=== PATIENT | female | born 1990 | race Two or more races ===

== ENCOUNTER 2022-07-15 07:47 | Emergency (ER) | payer OTHER ==
[2022-07-15] MEDS ORDERED: KETOROLAC 30 MG/ML VIAL IVP STA (08:24)
[2022-07-15] MEDS ORDERED: SODIUM CHLORIDE 0.9% 1,000 ML IV STA (08:24)
[2022-07-15 08:45] LABS: BASOPHILS % (AUTO) 0.2 %; EOSINOPHILS # (AUTO) 0.2 10^3/uL (0.0-0.7); EOSINOPHILS % (AUTO) 1.2 %; HCT - HEMATOCRIT 39.7 % (37.0-47.0); HGB - HEMOGLOBIN 12.7 g/dL (12.0-16.0); LYMPHOCYTES # (AUTO) 2.3 10^3/uL (1.5-3.5); LYMPHOCYTES % (AUTO) 15.9 %; MEAN CORPUSCULAR HEMOGLOBIN 30.5 pg (27.0-31.0); MEAN CORPUSCULAR VOLUME 95.4 fL (81.0-99.0); MEAN PLATELET VOLUME 9.7 fL (7.9-10.8); MONOCYTES # (AUTO) 0.7 10^3/uL (0.0-1.0); MONOCYTES % (AUTO) 4.9 %; NEUTROPHILS # (AUTO) 11.2 10^3/uL (1.5-6.6); NEUTROPHILS % (AUTO) 77.5 %; PLT - PLATELET COUNT 229 10^3/uL (130-450); RED BLOOD COUNT 4.16 10^6/uL (4.20-5.40); RED CELL DISTRIBUTION WIDTH 12.9 % (12.0-15.0); WHITE BLOOD COUNT 14.4 x10^3/uL (4.8-10.8)
[2022-07-15 09:07] LABS: ALBUMIN 4.2 g/dL (3.2-5.5); ALBUMIN/GLOBULIN RATIO 1.1 (1.0-2.2); BILIRUBIN,TOTAL 1.4 mg/dL (0.2-1.0); CALCIUM 8.6 mg/dL (8.5-10.3); CREATININE 0.6 mg/dL (0.4-1.0); POTASSIUM 3.4 mmol/L (3.5-5.0)
[2022-07-15 09:17] LABS: BILIRUBIN,URINE NEGATIVE (NEGATIVE); GLUCOSE, URINE (UA) NEGATIVE (NEGATIVE); KETONES,URINE (UA) NEGATIVE (NEGATIVE); LEUKOCYTE ESTERASE, URINE NEGATIVE (NEGATIVE); NITRITE,URINE NEGATIVE (NEGATIVE); OCCULT BLOOD,URINE TRACE-INTA (NEGATIVE); PROTEIN,URINE TRACE mg/dL (NEGATIVE); UROBILINOGEN,URINE 0.2 (NORMAL) E.U./dL (NORMAL)
[2022-07-15 09:19] LABS: CLARITY,URINE CLEAR (CLEAR); HCG UR QUAL NEGATIVE
--- NOTE | 2022-07-15 11:21 | CT Report ---
PROCEDURE: ABDOMEN/PELVIS W INDICATIONS: mid abdominal pain CONTRAST: 100ml Omnipaque 300 TECHNIQUE: After the administration of IV contrast, 5 mm thick sections acquired from the diaphragms to the symp hysis. 5 mm thick coronal and sagittal reformats were acquired. For radiation dose reduction, the f ollowing was used: automated exposure control, adjustment of mA and/or kV according to patient size. COMPARISON: None. FINDINGS: Image quality: Excellent. ABDOMEN: Lung bases: Lung bases are clear. Heart size is normal. Small hiatal hernia. Solid organs: Liver is normal in size. Mild hepatic steatosis. Spleen is mildly enlarged measuring 1 4.1 cm in length. Gallbladder contains gallstones. Biliary system is non dilated. Pancreas enhanc es normally. No adrenal nodules. Kidneys demonstrate normal size and enhancement, without hydroneph rosis. Peritoneum and bowel: Bowel loops demonstrate normal wall thickness and caliber. Appendix is normal . No free fluid or air. Nodes and vessels: No retroperitoneal or mesenteric adenopathy by size criteria. Aorta and inferior vena cava are normal in size. Miscellaneous: No ventral hernias. PELVIS: Genitourinary: Bladder wall thickness is normal. There is an IUD in uterus. Uterus is otherwise nor mal. Ovaries are unremarkable. No free fluid in pelvis. Miscellaneous: No inguinal hernias or adenopathy. Bones: No suspicious bony lesions. No vertebral body compression fractures. 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 IMPRESSION: 1. Cholelithiasis. No CT findings to suggest acute cholecystitis. If clinically indicated, ultrasound may be helpful. 2. Mild hepatic steatosis. 3. Mild splenomegaly. Reviewed by: Damien Godinez MD on 07/15/2022 10:19 AM [facility] [place] Approved by: Damien Godinez MD on 07/15/2022 10:19 AM [facility] [place] Station ID: [id number]
[2022-07-15] MEDS ORDERED: iohexoL-300 100 ML VIAL ONE (13:06)
--- NOTE | 2022-07-15 13:17 | Ultrasound Report ---
PROCEDURE: Abdomen Limited INDICATIONS: RUQ pain TECHNIQUE: Real-time scanning was performed of the abdominal and retroperitoneal organs, with image documentatio n. COMPARISON: None. FINDINGS: Liver: Liver is normal in size and homogeneous in echotexture. Gallbladder: Gallstone is present. Wall thickness is normal measuring 2 mm. Biliary ducts: Intrahepatic bile ducts are non-dilated. Extrahepatic bile duct caliber measures 3.5 mm. Normal is 6-7 mm or less in diameter, or 10 mm or less post-cholecystectomy. Pancreas: Visualized portions of the pancreas are sonographically normal. Kidneys: Right kidney measures 13.1 cm long. No hydronephrosis or nephrolithiasis. No solid masses . Miscellaneous: No free abdominal fluid. IMPRESSION: Cholelithiasis without wall thickening. . Reviewed by: Jess Connelly MD on 07/15/2022 1:16 PM [facility] Approved by: Jess Connelly MD on 07/15/2022 1:16 PM [facility] Station ID: [id number]
[2022-07-15 13:20] VITALS: BP 113/63
--- NOTE | 2022-07-15 13:23 | ED Physician Documentation ---
PD HPI ABD PAIN - Stated complaint Stated Complaint: ABD PX - Chief complaint Chief Complaint: Abd Pain - History obtained from History obtained from: Patient - Additional information Additional information: Pt is a 32 yo F presenting for evaluation of epigastric abdominal pain x 1 day with nausea. She describes it as sharp, non radiating. Nothing makes it better or worse. Denies CP. Pt is 8 months and is . No prior abdominal surgeries. Review of Systems Constitutional: denies: Fever Cardiac: denies: Chest pain / pressure Respiratory: denies: Dyspnea GI: reports: Abdominal Pain : denies: Dysuria Musculoskeletal: denies: Back pain Neurologic: denies: Headache PD PAST MEDICAL HISTORY - Past Medical History Past Medical History: Yes Cardiovascular: None Respiratory: Asthma Neuro: None Endocrine/Autoimmune: None GI: None [employer]: None : None HEENT: None Psych: None Musculoskeletal: None Derm: None - Past Surgical History Past Surgical History: No - Present Medications Home Medications: Ambulatory Orders Medication Instructions Recorded Confirmed Albuterol Sulf [Ventolin Hfa 1 - 2 puffs INH Q4HR PRN 07/15/22 07/15/22 Inhaler] - Allergies Allergies/Adverse Reactions: Allergies Allergy/AdvReac Type Severity Reaction Status Date / Time No Known Drug Allergies Allergy Verified 07/15/22 08:06 - Social History Does the pt smoke?: No Smoking Status: Never smoker Does the pt drink ETOH?: No Does the pt have substance abuse?: No - Immunizations Immunizations are current?: Yes PD ED PE NORMAL - General General: Alert and oriented X 3, No acute distress, Well developed/nourished - HEENT HEENT: Atraumatic - Neck Neck: Supple, no meningeal sign - Cardiac Cardiac: RRR - Respiratory Respiratory: No respiratory distress, Clear bilaterally - Abdomen Abdomen: Normal bowel sounds, Soft, Non distended, Other (epigastric and RUQ/LUQ ttp) - Derm Derm: Warm and dry - Neuro Neuro: Normal speech Results - Vitals Vitals: Vital Signs - 24 hr 07/15/22 07/15/22 07/15/22 07:57 09:06 11:00 Temperature 36.8 C Heart Rate 70 64 69 Respiratory 18 16 17 Rate Blood Pressure 121/76 106/65 110/62 O2 Saturation 99 100 100 07/15/22 13:00 Temperature Heart Rate 58 L Respiratory 16 Rate Blood Pressure 113/63 O2 Saturation 100 Oxygen O2 Source Room air - Labs Labs: Laboratory Tests 07/15/22 07/15/22 07/15/22 08:41 08:41 09:00 WBC 14.4 H RBC 4.16 L Hgb 12.7 Hct 39.7 MCV 95.4 MCH 30.5 MCHC 32.0 RDW 12.9 Plt Count 229 MPV 9.7 Neut # (Auto) 11.2 H Lymph # (Auto) 2.3 Terrell # (Auto) 0.7 Eos # (Auto) 0.2 Baso # (Auto) 0.0 Absolute Nucleated RBC 0.00 Nucleated RBC % 0.0 Sodium 135 Potassium 3.4 L Chloride 100 L Carbon Dioxide 26 Anion Gap 9.0 BUN 13 Creatinine 0.6 Estimated GFR (MDRD) 117 Glucose 99 Calcium 8.6 Total Bilirubin 1.4 H AST 17 ALT 22 Alkaline Phosphatase 66 Total Protein 8.0 Albumin 4.2 Globulin 3.8 Albumin/Globulin Ratio 1.1 Lipase 28 Urine Color DARK YELLOW Urine Clarity CLEAR Urine pH 6.0 Ur Specific [place] >=1.030 H Urine Protein TRACE Urine Glucose (UA) NEGATIVE Urine Ketones NEGATIVE Urine Occult Blood TRACE-INTA Urine Nitrite NEGATIVE Urine Bilirubin NEGATIVE Urine Urobilinogen 0.2 (NORMAL) Ur Leukocyte Esterase NEGATIVE Ur Microscopic Review NOT INDICATED Urine Culture Comments NOT INDICATED Urine HCG, Qual NEGATIVE PD Medical Decision Making - ED course Complexity details: reviewed results, re-evaluated patient ED course: Pt evaluated for upper abdominal pain. Stable vitals. Mild leukocytosis and total bili of 1.[address] with signs of cholelithiasis. US with same. No signs of cholecystitis on imaging and overall abdominal exam remains benign. Pt declined need for pain meds. Discussed need for close follow up with general surgery as well as low fat diet. Pt counseled on strict return precautions. 1320 - Discussed with surgery Dr. Pickard regarding elevated bilirubin, reviewed other labs and imaging with her. Pt okay for outpatient follow up as no duct dilatation seen on CT or US and LFTs normal. Departure - Departure Disposition: 01 Home, Self Care Clinical Impression: Cholelithiasis Condition: Stable Instructions: ED Diet Low Fat, ED Gallstone W Biliary Colic Follow-Up: Eloisa Chun MD [Provider Admit Priv/Credential] - Comments: You have gallstones which is likely causing your symptoms. You may need to have your gallbladder out in the future. I would stick with a low-fat diet to try and prevent your symptoms from reoccurring. Please follow-up with your primary care doctor as you may need a referral to the general surgery clinic depending on your insurance. I have also included the name of a surgeon you can follow-up with. If it anytime you have any worsening symptoms such as increased pain, appear yellow or have any concerns please return to the emergency department. Forms: Activity restrictions Discharge Date/Time: 07/15/22 14:08
[2022-07-15] MEDS ORDERED: iohexoL-300 100 ML VIAL IVP ONE (15:31)
== END 2022-07-15 14:08 | disposition home or self-care (01) ==
LOC: ED 07:47
DX: K80.20 Calculus of gallbladder without cholecystitis without obstruction (principal)
CPT/HCPCS: 36415; 74177; 76705; 80053; 81003; 81025; 83690; 85025; 96361; 96374; 99283; 99284; Q9967; 81001; 87086